=== PATIENT | female | born 1995 | race Asian ===

== ENCOUNTER 2017-04-25 06:44 | Inpatient (IN) | payer MEDICAID ==
[2017-04-25] MEDS ORDERED: NACL 0.9% 1000 ML 1,000 ML ONE ×3 (07:48→12:02)
[2017-04-25] MEDS ORDERED: ZOFRAN IV ONE (07:53)
[2017-04-25] MEDS ORDERED: DILAUDID IV ONE (07:53)
--- NOTE | 2017-04-25 07:55 | Emergency Department Report ---
ED Abdominal Pain HPI - General Chief Complaint: Abdominal Pain Stated Complaint: ABD PAIN Time Seen by Provider: 04/25/17 07:46 Source: patient Mode of arrival: Wheelchair Limitations: No Limitations - History of Present Illness Initial Comments: 21-year-old female presents to the hospital complaining of lower abd pain center onset at 1 AM. Positive associated nausea or vomiting. No abdominal pain is crampy, severe, continuous. Worse with palpation. No alleviating factors. Patient states her menstrual cycle is typically regular. Last cycle was in February she did not have a period in March. She has not taken a recent test. She has a history of 2 previous pregnancies and one miscarriage and one living child. Also previous history of cholecystectomy - Related Data Home Medications Medication Instructions Recorded Confirmed Last Taken No Known Home Medications [No 04/25/17 04/25/17 Unknown Reported Home Medications] Allergies Allergy/AdvReac Type Severity Reaction Status Date / Time No Known Allergies Allergy Unverified 04/25/17 07:33 ED Review of Systems ROS: Stated complaint: ABD PAIN Other details as noted in HPI Comment: All other systems reviewed and negative Other: Constitutional: No fevers chills Eyes: No eye pain visual changes ENT: No ear pain or throat pain Neck: Denies pain Respiratory: Denies cough wheezing shortness of breath Cardiovascular: Denies chest pain, palpitations, syncope GI: As per HPI : Denies dysuria Musculoskeletal: Denies back pain Skin: Denies rash, lesions, erythema Neurologic: Denies headache, numbness, weakness Psychiatric: Denies suicidal ideation, hallucinations ED Past Medical Hx - Past Medical History Previous Medical History?: No - Surgical History Past Surgical History?: Yes Hx Cholecystectomy: Yes - Social History Smoking Status: Never Smoker Substance Use Type: None - Medications Home Medications: Home Medications Medication Instructions Recorded Confirmed Last Taken Type No Known Home Medications [No 04/25/17 04/25/17 Unknown History Reported Home Medications] ED Physical Exam - General Limitations: No Limitations - Other Other exam information: General: Mild distress secondary to pain Head exam: Atraumatic, normocephalic Eyes exam: Normal appearance ENT: Moist mucous membrane, normal oropharynx Neck exam: Normal inspection, full range of motion Respiratory exam: Clear to auscultation bilateral, no wheezes, rales, crackles Cardiovascular: Tachycardic regular rhythm Abdomen: Soft, nondistended, superpubic tenderness. No rebound or guarding Extremity: Full range of motion normal inspection no deformity Back: Normal Inspection, full range of motion, no tenderness Neurologic: Alert, oriented x3, cranial nerves intact, no motor or sensory deficit Psychiatric: normal affect, normal mood Skin: Diaphoretic, pale ED Course Vital Signs 04/25/17 07:33 Pulse Rate 147 H Respiratory 16 Rate Blood Pressure 84/52 O2 Sat by Pulse 99 Oximetry - Reevaluation(s) Reevaluation #1: 04/25/17 08:27 Patient has received Dilaudid 0.5 mg, Zofran, and normal saline bolus 04/25/17 08:32 Patient's heart rate has improved from 150s to 1 teens after receiving 1 L normal saline and 0.5 mg of Dilaudid. Systolic pressure remains 109. Patient reports improvement in pain - Consultations Consultation #1: 04/25/17 07:57 Case discussed with the Dr. Mercado about possible differential of SOCIAL SERVICES SPECIALIST- related emergency. Will be contacted once more results are available 04/25/17 08:18 prelim bedside ultrasound, + a lot of free fluid, 7wks left adnexal ectopic, + heart, official pending, Case d/w Dr Mercado, will activate OR and come in to perform surgery. I canceled Transvag US ED Medical Decision Making - Lab Data Result diagrams: 04/25/17 07:50 04/25/17 07:50 Lab Results 04/25/17 04/25/17 04/25/17 Range/Units 07:47 07:50 07:50 WBC 29.8 H (4.5-11.0) K/mm3 RBC 4.26 (3.65-5.03) M/mm3 Hgb 10.8 (10.1-14.3) gm/dl Hct 33.9 (30.3-42.9) % MCV 80 (79-97) fl MCH 25 L (28-32) pg MCHC 32 (30-34) % RDW 14.3 (13.2-15.2) % Plt Count 444 H (140-440) K/mm3 Add Manual Diff Complete Total Counted 100 Seg Neuts % (Manual) 84.0 H (40.0-70.0) % Band Neutrophils % 3.0 % Lymphocytes % (Manual) 10.0 L (13.4-35.0) % Reactive Lymphs % (Man) 0 % Monocytes % (Manual) 3.0 (0.0-7.3) % Eosinophils % (Manual) 0 (0.0-4.3) % Basophils % (Manual) 0 (0.0-1.8) % Metamyelocytes % 0 % Myelocytes % 0 % Promyelocytes % 0 % Blast Cells % 0 % Nucleated RBC % Not Reportable Seg Neutrophils # Man 25.0 H (1.8-7.7) K/mm3 Band Neutrophils # 0.9 K/mm3 Lymphocytes # (Manual) 3.0 (1.2-5.4) K/mm3 Abs React Lymphs (Man) 0.0 K/mm3 Monocytes # (Manual) 0.9 H (0.0-0.8) K/mm3 Eosinophils # (Manual) 0.0 (0.0-0.4) K/mm3 Basophils # (Manual) 0.0 (0.0-0.1) K/mm3 Metamyelocytes # 0.0 K/mm3 Myelocytes # 0.0 K/mm3 Promyelocytes # 0.0 K/mm3 Blast Cells # 0.0 K/mm3 WBC Morphology Not Reportable Hypersegmented Neuts Not Reportable Hyposegmented Neuts Not Reportable Hypogranular Neuts Not Reportable Smudge Cells Not Reportable Toxic Granulation Not Reportable Toxic Vacuolation Not Reportable Dohle Bodies Not Reportable Pelger-Huet Anomaly Not Reportable Robbie Rods Not Reportable Platelet Estimate Appears normal Clumped Platelets Not Reportable Plt Clumps, EDTA Not Reportable Large Platelets Not Reportable Giant Platelets Not Reportable Platelet Satelliting Not Reportable Plt Morphology Comment Not Reportable RBC Morphology Not Reportable Dimorphic RBCs Not Reportable Polychromasia Rare Hypochromasia Few Poikilocytosis 1+ Anisocytosis 1+ Microcytosis Not Reportable Macrocytosis Not Reportable Spherocytes Not Reportable Pappenheimer Bodies Not Reportable Sickle Cells Not Reportable Target Cells Not Reportable Tear Drop Cells Rare Ovalocytes 1+ Helmet Cells Not Reportable Lund-Becker Bodies Not Reportable [place] Rings Not Reportable Mai Cells Not Reportable Bite Cells Not Reportable Crenated Cell Not Reportable Elliptocytes Not Reportable Acanthocytes (Spur) Not Reportable Rouleaux Not Reportable Hemoglobin C Crystals Not Reportable Schistocytes Not Reportable Malaria parasites Not Reportable Jossue Bodies Not Reportable Hem Pathologist Commnt No PT (12.2-14.9) Sec. INR (0.87-1.13) APTT (24.2-36.6) Sec. Sodium 134 L (137-145) mmol/L Potassium 4.3 (3.6-5.0) mmol/L Chloride 94.7 L (98-107) mmol/L Carbon Dioxide 17 L (22-30) mmol/L Anion Gap 27 mmol/L BUN 9 (7-17) mg/dL Creatinine 1.3 H (0.7-1.2) mg/dL Estimated GFR 51 ml/min BUN/Creatinine Ratio 6.92 % Glucose 313 H (65-100) mg/dL Calcium 8.9 (8.4-10.2) mg/dL Total Bilirubin 0.40 (0.1-1.2) mg/dL AST 23 (5-40) units/L ALT 34 (7-56) units/L Alkaline Phosphatase 56 (35-129) units/L Total Protein 7.0 (6.3-8.2) g/dL Albumin 4.1 (3.9-5) g/dL Albumin/Globulin Ratio 1.4 % Lipase 21 (13-60) units/L HCG, Quant (0-4) mIU/mL Blood Type AB POSITIVE Antibody Screen TNR BAUTISTA Antibody Screen Negative 04/25/17 04/25/17 Range/Units 07:50 07:50 WBC (4.5-11.0) K/mm3 RBC (3.65-5.03) M/mm3 Hgb (10.1-14.3) gm/dl Hct (30.3-42.9) % MCV (79-97) fl MCH (28-32) pg MCHC (30-34) % RDW (13.2-15.2) % Plt Count (140-440) K/mm3 Add Manual Diff Total Counted Seg Neuts % (Manual) (40.0-70.0) % Band Neutrophils % % Lymphocytes % (Manual) (13.4-35.0) % Reactive Lymphs % (Man) % Monocytes % (Manual) (0.0-7.3) % Eosinophils % (Manual) (0.0-4.3) % Basophils % (Manual) (0.0-1.8) % Metamyelocytes % % Myelocytes % % Promyelocytes % % Blast Cells % % Nucleated RBC % Seg Neutrophils # Man (1.8-7.7) K/mm3 Band Neutrophils # K/mm3 Lymphocytes # (Manual) (1.2-5.4) K/mm3 Abs React Lymphs (Man) K/mm3 Monocytes # (Manual) (0.0-0.8) K/mm3 Eosinophils # (Manual) (0.0-0.4) K/mm3 Basophils # (Manual) (0.0-0.1) K/mm3 Metamyelocytes # K/mm3 Myelocytes # K/mm3 Promyelocytes # K/mm3 Blast Cells # K/mm3 WBC Morphology Hypersegmented Neuts Hyposegmented Neuts Hypogranular Neuts Smudge Cells Toxic Granulation Toxic Vacuolation Dohle Bodies Pelger-Huet Anomaly Robbie Rods Platelet Estimate Clumped Platelets Plt Clumps, EDTA Large Platelets Giant Platelets Platelet Satelliting Plt Morphology Comment RBC Morphology Dimorphic RBCs Polychromasia Hypochromasia Poikilocytosis Anisocytosis Microcytosis Macrocytosis Spherocytes Pappenheimer Bodies Sickle Cells Target Cells Tear Drop Cells Ovalocytes Helmet Cells Lund-Becker Bodies [place] Rings Mai Cells Bite Cells Crenated Cell Elliptocytes Acanthocytes (Spur) Rouleaux Hemoglobin C Crystals Schistocytes Malaria parasites Jossue Bodies Hem Pathologist Commnt PT 13.6 (12.2-14.9) Sec. INR 1.05 (0.87-1.13) APTT 25.0 (24.2-36.6) Sec. Sodium (137-145) mmol/L Potassium (3.6-5.0) mmol/L Chloride (98-107) mmol/L Carbon Dioxide (22-30) mmol/L Anion Gap mmol/L BUN (7-17) mg/dL Creatinine (0.7-1.2) mg/dL Estimated GFR ml/min BUN/Creatinine Ratio % Glucose (65-100) mg/dL Calcium (8.4-10.2) mg/dL Total Bilirubin (0.1-1.2) mg/dL AST (5-40) units/L ALT (7-56) units/L Alkaline Phosphatase (35-129) units/L Total Protein (6.3-8.2) g/dL Albumin (3.9-5) g/dL Albumin/Globulin Ratio % Lipase (13-60) units/L HCG, Quant 01290 H (0-4) mIU/mL Blood Type Antibody Screen BAUTISTA Antibody Screen - Radiology Data Radiology results: report reviewed (abdominal ultrasound: Received call from radiologist at 9:09 AM confirming left adnexal viable ectopic with positive free fluid/rupture) - Medical Decision Making Patient requires emergent surgery for ruptured ectopic . Dr. Mercado will arrange for surgery YOSSI. Patient required admission to the hospital. Patient also had significant leukocytosis and hyperglycemia which may be due to stress reaction. However, diabetes/sepsis is also in the differential - Differential Diagnosis ruptured cyst, torsion, ectopic, miscarriage, appendicitis, perforated visc Critical Care Time: Yes Critical care time in (mins) excluding proc time.: 35 Critical care attestation.: If time is entered above; I have spent that time in minutes in the direct care of this critically ill patient, excluding procedure time. Critical Care Time: Patient received 2 peripheral IVs upon arrival with initiation of normal saline bolus. Patient requires stat bedside ultrasound and repeat assessment for response to treatment. Consultation to chief human resources officer ED Disposition Clinical Impression: Ruptured ectopic , Hyperglycemia, Leukocytosis Disposition: DISCHARGED TO HOME OR SELFCARE Is pt being admited?: Yes Condition: Good Referrals: PRIMARY CARE, [Primary Care Provider] - 3-5 Days Time of Disposition: 08:27 (Dr eMrcado/chief human resources officer)
[2017-04-25 08:08] LABS: Hematocrit 33.9 % (30.3-42.9); Hemoglobin 10.8 gm/dl (10.1-14.3); Mean Corpuscular HGB Conc 32 % (30-34); Mean Corpuscular Volume 80 fl (79-97); Platelet Count 444 K/mm3 (140-440); Red Blood Count 4.26 M/mm3 (3.65-5.03); Red Cell Distribution Width 14.3 % (13.2-15.2)
[2017-04-25 08:11] LABS: Mean Corpuscular Hemoglobin 25 pg (28-32); White Blood Count 29.8 K/mm3 (4.5-11.0)
[2017-04-25 08:22] LABS: Albumin 4.1 g/dL (3.9-5); Albumin/Globulin Ratio 1.4 %; BUN/Creatinine Ratio 6.92; Bilirubin,Total 0.4 mg/dL (0.1-1.2); Calcium 8.9 mg/dL (8.4-10.2); Chloride 94.7 mmol/L (98-107); Potassium 4.3 mmol/L (3.6-5.0)
[2017-04-25 08:24] LABS: INR 1.05 (0.87-1.13)
[2017-04-25] MEDS ORDERED: NACL 0.9% 1000 ML 1,000 ML IV ONE (08:31)
[2017-04-25 09:01] LABS: Anisocytosis 1+; Basophils % (Manual) 0 % (0.0-1.8); Blastocytes % (Manual) 0 %; Diff Status Complete; Eosinophils % (Manual) 0 % (0.0-4.3); Hypochromasia Few; Ovalocytes 1+; Poikilocytosis 1+; Polychromasia Rare; Tear Drop Cells Rare
--- NOTE | 2017-04-25 09:09 | Ultrasound Report ---
FINAL REPORT PROCEDURE: US OB \T\lt; = 14 WEEKS FETUS TECHNIQUE: Real-time transabdominal sonography of the uterus, placenta, amniotic fluid, adnexa, and fetus was performed with image documentation. Measurements were obtained to determine age/size. M-mode Doppler was used to document heartbeat. CPT 44519 Transvaginal ultrasound was not performed per Dr. Schofield, according to ocular care technologist notes HISTORY: lower abd pain, tachycardia COMPARISON: No prior studies are available for comparison. FINDINGS: Uterus 8.1 centimeter Endometrial thickness 3 millimeters No IUP is seen Cervix: Normal. Right ovary not visualized Left ovary not visualized, however there is a left adnexal mass measuring 4.1 x 3.3 centimeters containing a live ectopic measuring 9 millimeters consistent with 7 week 0 day age. Ectopic Embryonic Cardiac Activity: 131 beats per minute Free fluid in the pelvis and right and left upper quadrants. The free fluid could reflect rupture or related bleed to the ectopic IMPRESSION: Single live ectopic left adnexa. Large amount of free fluid in the pelvis and upper quadrants may reflect rupture or bleed related to the ectopic Obstetric surgical consultation advised. Report called to Dr. Schofield at 9 a.m. 04/25/2017
--- NOTE | 2017-04-25 09:19 | Anesthesia Consultation ---
Anesthesia Consult and Med Hx Date of service: 04/25/17 - Airway Anesthetic Teeth Evaluation: Good (upper and lower braces) ROM Head & Neck: Adequate Mental/Hyoid Distance: Adequate Mallampati Class: Class II Intubation Access Assessment: Probably Good - Pre-Operative Health Status ASA Pre-Surgery Classification: ASA2, Emergency Proposed Anesthetic Plan: General - Additional Comments Anesthesia Medical History Comments: ectopic
--- NOTE | 2017-04-25 09:20 | Anesthesia Day of Surgery ---
Anesthesia Day of Surgery - Day of Surgery Patient Examined: Yes Patient H&P Reviewed: Yes Patient is NPO: Yes (had some water @3AM )
[2017-04-25] MEDS ORDERED: ACD-A 500 ML IV ONE (09:35)
--- NOTE | 2017-04-25 09:54 | Short Stay Summary ---
Short Stay Documentation Date of service: 04/25/17 Narrative H&P: 21y/o @ 7 weeks leandro presents to the ED with pelvic pain and lightheaded. Pelvic ultrasound demonstrates a left ectopic consistent with 7 weeks and cardiac activity. Free fluid was also seen in the abdomen. Upon presentation, the patient is tachycardic and in acute distress. - History Principal diagnosis: Left ectopic Past Medical History: No medical history Past Surgical History: cholecystectomy Social history: single - Allergies and Medications Current Medications: Allergies No Known Allergies Allergy (Unverified 04/25/17 07:33) - Physical exam General appearance: severe distress Integumentary: no rash HEENT: Atraumatic Lungs: Clear to auscultation Breasts: deferred Heart: Other (tachycardia) Gastrointestinal: tenderness Female Genitourinary: deferred - Brief post op/procedure progress note Date of procedure: 04/25/17 Pre-op diagnosis: Left ectopic Post-op diagnosis: same Procedure: Laparoscopy left salpingectomy Anesthesia: GETA Surgeon: ASHU SUBRAMANIAN Estimated blood loss: other (1000ml) Pathology: list (left ectopic ) - Hospital course Hospital course: Patient admitted from the ED for findings of a left ectopic and significant hemoperitoneum. Patient underwent a laparoscopic left salpingectomy. see op note. She was observed overnight. Discharged home pod 1 - Disposition Condition at discharge: Good Disposition: DISCHARGED TO HOME OR SELFCARE - Discharge Diagnoses (1) Ruptured ectopic Status: Acute Short Stay Discharge Plan Activity: other (pelvic rest for 2 weeks) Diet: regular Additional Instructions: Followup in [address] Olson at [facility] [address] [phone] Prescriptions: Docusate Sodium [Colace] 100 mg PO BID PRN #60 capsule PRN Reason: Constipation Ferrous Sulfate [Feosol 325 MG tab] 325 mg PO BID #60 tablet Ibuprofen [Motrin] 800 mg PO Q8HR PRN #60 tablet PRN Reason: Pain Oxycodone HCl/Acetaminophen [Percocet 10/325 mg] 1 each PO Q6HR PRN #45 tablet PRN Reason: Pain
[2017-04-25] MEDS ORDERED: DILAUDID ONE (09:57)
[2017-04-25] MEDS ORDERED: DIPRIVAN 10 MG/ML IV ONE (09:57)
[2017-04-25] MEDS ORDERED: XYLOCAINE MPF 2% ONE (09:58)
[2017-04-25] MEDS ORDERED: QUELICIN ONE (09:58)
[2017-04-25] MEDS ORDERED: ZEMURON IV ONE (09:58)
[2017-04-25] MEDS ORDERED: NEO SYNEPHRINE/NS Syringe(OR USE) IV ONE (10:30)
[2017-04-25] MEDS ORDERED: ZOFRAN ONE (10:34)
[2017-04-25] MEDS ORDERED: DECADRON ONE ×2 (10:34→11:46)
[2017-04-25] MEDS ORDERED: DILAUDID IV PRN (10:52)
[2017-04-25] MEDS ORDERED: LACTATED RINGERS 1,000 ML ONE (10:54)
[2017-04-25] MEDS ORDERED: ZOFRAN IV PRN ×2 (11:00→12:13)
[2017-04-25] MEDS ORDERED: NORCO 5/325 PO PRN (11:00)
[2017-04-25] MEDS ORDERED: MARCAINE 0.5% 30 ML INFILTRATI ONE (11:02)
[2017-04-25] MEDS ORDERED: MARCAINE 0.5% INFILTRATI ONE (11:04)
[2017-04-25] MEDS ORDERED: NEOSTIGMINE ONE (11:47)
[2017-04-25] MEDS ORDERED: ROBINUL ONE (11:47)
--- NOTE | 2017-04-25 12:02 | Operative Report ---
Operative Report Operative Report: Date of surgery:04/25/2017 Preoperative diagnosis: Left ectopic ; Hemoperitoneum Postoperative diagnosis: Same as above Procedure: Laparoscopic left salpingectomy; evacuation of hemoperitoneum Surgeon: Philly Petit M.D. Anesthesia: General endotracheal anesthesia Estimated blood loss: 1000 mL Findings: Ruptured left ectopic ; hemoperitoneum Pathology: Left ectopic Indication: 21-year-old 011 at 7 weeks estimated gestational age with findings of a ruptured left ectopic . The patient was diaphoretic at the presentation in the emergency room with findings of a large hemoperitoneum. Procedure: The patient was taken to the operating room and given general endotracheal anesthesia without complication. The patient is prepped and draped in a normal sterile fashion. A bivalve speculum was placed in the patient's vagina and a single-tooth tenaculum was placed on the anterior lip of the cervix .A uterine acorn manipulato rwas placed, and the bivalve speculum was then removed. Attention was then turned to the patient's abdomen where a 5 mm infraumbilical skin incision was then made. A Veress needle was placed and peritoneal entry was verified water-filled syringe. Insufflation of the peritoneal cavity was performed with CO2 gas. A 5 mm trocar was placed and the laparoscope was then inserted. The patient was then placed in Trendelenburg. A 12 mm left lateral skin incision was then made. Under direct visualization a 12 mm trocar was then placed. General survey of the patient's abdomen revealed a large hemoperitoneum, also with findings of a ruptured left ectopic . The left ovary was normal in appearance and the right tube and ovary were also normal. An additional 5 mm suprapubic incision was made and a 5 mm trocar was placed under direct visualization. Evacuation of the hemoperitoneum was performed. The left tube was grasped and a LigaSure device was used to coagulate and transect the left fallopian tube. The was noted to be in the ampullary portion of the tube. There was a complete rupture of the left ampullary tube. The patient was placed in reverse Trendelenburg to performed additional removal of the hemoperitoneum. Once the site was deemed hemostatic the 12 mm trocar was then removed. The fascial incision was then closed with a Jass Hopper device using 0 Vicryl. The suprapubic trocar was then also removed. The pneumoperitoneum was then released.The 5 mm trocar laparoscope was then removed. The skin incisions were then closed with 4-0 Monocryl. The incisions were injected with quarter percent Marcaine. Dressings were applied to the incision. The vaginal instruments were then removed atraumatically. Then successfully extubated and taken to the recovery room. All sponge laps and needle counts were correct 2.
[2017-04-25] MEDS ORDERED: PERCOCET 5/325 PO PRN (12:13)
[2017-04-25] MEDS ORDERED: MOTRIN PO PRN (12:13)
[2017-04-25] MEDS ORDERED: TYLENOL PO PRN (12:13)
[2017-04-25] MEDS ORDERED: D5LR 1,000 ML IV SCH (13:00)
[2017-04-25] MEDS: TORADOL IV SCH ×2 (14:00→21:52)
[2017-04-25 20:07] LABS: Bilirubin,Urine NEG (Negative); Blood,Urine LG (Negative); Ketones,Urine TR mg/dL (Negative); Leukocyte Esterase,Urine NEG (Negative); Mucus,Urine 1+ /HPF; Nitrite,Urine NEG (Negative); RBC,Urine > 182.0 /HPF (0.0-6.0); Urobilinogen,Urine < 2.0 mg/dL (<2.0)
--- NOTE | 2017-04-25 20:22 | Post Anesthesia Evaluation ---
- Post Anesthesia Evaluation Patient Participated: Yes Airway Patent: Yes Stable Respiratory Function: Yes Temp > 96.8F: Yes Pain Manageable: Yes Adequeate Hydration: Yes Anesthesia Complications: No Block Receding Appropriately: Not Applicable
--- NOTE | 2017-04-25 20:24 | Progress Note ---
Subjective Date of service: 04/25/17 Principal diagnosis: Left ectopic Interval history: Patient seen and examined. She has no right shoulder pain, tenderness or loss of mobility. Objective - Constitutional Vitals: Vital Signs - 12hr 04/25/17 04/25/17 04/25/17 12:18 12:30 12:45 Temperature Pulse Rate 80 82 83 Pulse Rate [ Apical] Respiratory 18 19 22 Rate Blood Pressure 115/46 117/53 113/70 Blood Pressure [Right Arm] O2 Sat by Pulse 97 99 100 Oximetry 04/25/17 04/25/17 04/25/17 13:00 13:15 13:48 Temperature 97.7 F 97.7 F Pulse Rate 88 Pulse Rate [ 87 124 H Apical] Respiratory 18 18 18 Rate Blood Pressure 143/77 Blood Pressure 143/77 [Right Arm] O2 Sat by Pulse 100 98 Oximetry 04/25/17 16:16 Temperature 98.6 F Pulse Rate Pulse Rate [ 80 Apical] Respiratory 20 Rate Blood Pressure Blood Pressure 128/64 [Right Arm] O2 Sat by Pulse Oximetry - Labs CBC & Chem 7: 04/25/17 07:50 04/25/17 07:50 Labs: Abnormal lab results 04/25/17 Range/Units 19:45 Urine HCG, Qual Positive A (Negative)
[2017-04-26] MEDS: TORADOL IV SCH (01:00)
[2017-04-26 06:27] LABS: Hematocrit 26.9 % (30.3-42.9); Hemoglobin 8.7 gm/dl (10.1-14.3)
[2017-04-26] MEDS ORDERED: LACTATED RINGERS 1,000 ML IV ONE (08:30)
--- NOTE | 2017-04-26 08:52 | Progress Note ---
Assessment and Plan - Patient Problems (1) Ruptured ectopic Current Visit: Yes Status: Acute Plan to address problem: clinically stable discharge home today Subjective - Subjective Date of service: 04/26/17 Principal diagnosis: Left ectopic Interval history: Patient states feeling much better. Slight tachycardia but asymptomatic. Patient is ambulating in room. Better control of pain. Will give a fluid bolus. Patient reports: appetite normal, voiding normally, pain well controlled Objective - Vital Signs Latest vital signs: Vital Signs Temp Pulse Pulse Pulse Resp BP BP 04/26/17 08:16 125 H 04/26/17 08:03 98.6 F 106 H 16 114/55 04/26/17 04:55 98.1 F 107 H 20 119/62 04/26/17 00:20 97.9 F 120 H 20 128/83 04/25/17 21:52 18 04/25/17 20:35 99.0 F 89 20 132/74 04/25/17 16:16 98.6 F 80 20 128/64 04/25/17 13:48 124 H 18 04/25/17 13:15 97.7 F 88 18 143/77 04/25/17 13:00 97.7 F 87 18 143/77 04/25/17 12:45 83 22 113/70 04/25/17 12:30 82 19 117/53 04/25/17 12:18 80 18 115/46 Pulse Ox 04/26/17 08:16 04/26/17 08:03 99 04/26/17 04:55 04/26/17 00:20 04/25/17 21:52 04/25/17 20:35 04/25/17 16:16 04/25/17 13:48 98 04/25/17 13:15 100 04/25/17 13:00 04/25/17 12:45 100 04/25/17 12:30 99 04/25/17 12:18 97 Intake and Output 04/25/17 04/26/17 04/26/17 22:59 06:59 14:59 Intake Total 1140 240 Output Total 750 500 Balance 390 -260 Intake: IV 300 D5lr 1,000 ml @ 125 mls/ 300 hr IV DIRECT ROSA Rx#: [id number] Oral 720 240 Intake, Free Water 120 Output: Urine 750 500 Void 750 500 Other: Total, Intake Amount 240 120 Total, Output Amount 200 200 Voiding Method Toilet - Exam Abdomen: Present: normal appearance - Labs Labs: Abnormal lab results 04/25/17 04/26/17 Range/Units 19:45 05:55 Hgb 8.7 L (10.1-14.3) gm/dl Hct 26.9 L D (30.3-42.9) % Urine HCG, Qual Positive A (Negative)
[2017-04-26] MEDS ORDERED: NACL 0.9% 500 ML 500 ML IV ONE (13:22)
[2017-04-26 17:34] VITALS: BP 110/59
--- NOTE | 2017-04-27 09:15 | Admit Criteria Form ---
Admission Criteria Documentation: OBSTETRIC AND GYNECOLOGIC DISEASE GRG Clinical Indications for Admission to Inpatient Care (Place 'X' for any and all applicable criteria): Hospital admission is needed for appropriate care of the patient because of 1 or more of the following (1)(2)(3): [ ]I. Hemodynamic instability, as indicated by 1 or more of the following (1)( 2)(3)(4)(5): [ ]a) Vital signs or other findings not as expected for chronic patient condition or baseline [ ]b) Instability indicated by 1 or more of the following: [ ]i) Hypotension [ ]ii) Symptomatic tachycardia unresponsive to treatment (eg, analgesia, fluids, sedation as indicated) [ ]iii) Inadequate perfusion indicated by 1 or more of the following: [ ]A. Lactic acidosis (greater than 2 mmol/ L) [ ]B. New abnormal capillary refill ( greater than 3 seconds) [ ]C. Reduced urine output [ ]D. New altered mental status [ ]iv) Orthostatic vital sign changes unresponsive to treatment (eg, fluids) [ ]v) Multiple IV fluid boluses required to maintain adequate blood pressure or perfusion [ ]vi) IV inotropic or vasopressor medication required to maintain adequate blood pressure or perfusion [ ]II. Obstetric infection requiring hospitalization indicated by 1 or more of the following(13)(14): [ ]a) Chorioamnionitis [ ]b) Endometritis (except mild endometritis) [ ]c) Pelvic abscess [ ]d) Peritonitis [ ]e) Septic pelvic thrombophlebitis [ ]III. Amniotic fluid or pulmonary embolism(4)(5)(6) [X]IV. Suspected peritonitis or ectopic requiring monitoring beyond scope of 24 hours or observation care(7)(8) [ ]V. compromise requiring hospitalization indicated by ALL of the following(9)(10): [ ]a) compromise indicated by 1 or more of the following(11): [ ]i) Abnormal heart rate monitoring [ ]ii) Abnormal contraction stress test [ ]iii) Abnormal biophysical profile [ ]iv) Abnormal Doppler flow in vessels (ie, Doppler velocimetry) (12) [ ]b) Persistence of compromise indicators during evaluation and observation monitoring [ ]. Ovarian hyperstimulation syndrome requiring hospitalization[A] indicated by ALL of the following(15): [ ]a) Recent ovarian stimulation with gonadotropins, or evidence on ultrasound of spontaneous emergence of large number of ovarian follicles [ ]b) Evidence of severe ovarian hyperstimulation syndrome indicated by 1 or more of the following: [ ]i) Abdominal pain unresponsive to oral therapy [ ]ii) Acute respiratory distress syndrome [ ]iii) Electrolyte imbalance ( eg, hyponatremia, hyperkalemia) [ ]iv) Elevated liver enzymes [ ]v) Evidence of thromboembolism [ ]vi) Hemoconcentration (hematocrit greater than 45 % (0.45)) [ ]vii) Inability to maintain oral intake adequate to prevent hemoconcentration [ ]viii) Marked hypotension from baseline (eg, SBP 20 mmHg below patients usual pressure) [ ]ix) Oliguria or anuria [ ]x) Ovarian torsion [ ]xi) Pleural or pericardial effusion on x-ray or echocardiogram [ ]xii) Rapid increase in serum creatinine to greater than 1.2 mg/dL (106 micromoles/L) or creatinine clearance less than 50 mL/min/1.73m2 (0.84 mL/ sec/1.73m2) [ ]xiii) Ruptured ovarian cyst with hemorrhage [ ]xiv) Severe abdominal pain or peritoneal signs [ ]xv) Tense ascites that cannot be managed with paracentesis in outpatient setting [ ]VII.Pelvic infection requiring hospitalization indicated by 1 or more of the following (16): [ ]a) Outpatient treatment has failed or is not appropriate (eg, inpatient monitoring required) [ ]b) Pelvic abscess [ ]c) Surgical emergency cannot be excluded (eg, rigid abdomen) [ ]d) Vomiting precluding outpatient and observation care management VIII. loss complications requiring inpatient medical treatment indicated by 1 or more of the following (4)(7)(9): [ ]a) Fever [ ]b) Peritonitis [ ]c) Sepsis [ ]d) Severe abdominal pain [ ]IX. or patient requiring monitoring for severe heart failure, pulmonary disease, or other comorbid condition (eg, peripartum cardiomyopathy) (4)(17) [ ]X. patient with rupture of membranes requiring hospitalization indicated by ANY ONE of the following: [ ]a) Chorioamnionitis, cloudy amniotic fluid, or other evidence of infection [ ]b) compromise or other need for monitoring (11) [ ]c) Gestation longer than 23 weeks and ANY ONE of the following: [ ]i) Abnormal (noncephalic) presentation [ ]ii) Inadequate home environment (eg, home too far from hospital, unable to rapidly return to hospital) [ ]d) Temperature greater than 100.4 degrees F (38 degrees C)( oral) [ ]e) Threatened labor requiring monitoring beyond scope (eg, over 24 hours) of observation Care [ ] XI. complications, including severe lacerations, infections, or retained placenta (19) [ ] XII.Uterine bleeding with high-risk features indicated by ANY ONE of the following (4): [ ]a) Active major hemorrhage (eg, hemorrhage) [ ]b) Coagulopathy with active bleeding [ ]c) Gestational trophoblastic disease (eg, molar ) (20 ) [ ]d) (longer than 23 weeks) and ANY ONE of the following: [ ]i) Pain [ ]ii) Placental abruption, known or suspected [ ]iii) Placenta accrete, known or suspected(21) [ ]iv) Placenta previa, known or suspected [ ]v) Vasa previa [ ]e) Severe anemia [ ]XIII. Obstetric or Gynecologic Disease, condition or symptom for which ANY ONE of the following: [ ]a) Emergency and observation care have failed or are not considered appropriate ( Also use General Criteria: Observation Care Criteria as appropriate) [ ]b) Presence of a General Admission Criteria or Pediatric General Admission Criteria The original [facility] content created by [facility] [employer] has been revised. The portions of the content which have been revised are identified through the use of italic text or in bold, and [facility] has neither reviewed nor approved the modified material.All other unmodified content is copyright [facility]. Please see references footnoted in the original [facility] edition 2016 Admission Criteria Met: Yes
== END 2017-04-26 18:22 | disposition home or self-care (01) | DRG 777 ==
LOC: ED 06:44 → OR 11:51 → OB 12:13
PROVIDERS: ADMIT Obstetrics & Gynecology; ATTEND Obstetrics & Gynecology
PROC: 0UB64ZZ Excision of Left Fallopian Tube, Percutaneous Endoscopic Approach (ICD-10-PCS; principal; 2017-04-25)
PROC: 10T24ZZ Resection of Products of Conception, Ectopic, Percutaneous Endoscopic Approach (ICD-10-PCS; 2017-04-25)
PROC: 0WCG4ZZ Extirpation of Matter from Peritoneal Cavity, Percutaneous Endoscopic Approach (ICD-10-PCS; 2017-04-25)
PROC: 30233N1 Transfusion of Nonautologous Red Blood Cells into Peripheral Vein, Percutaneous Approach (ICD-10-PCS; 2017-04-26)
DX: O00.90 Unspecified ectopic pregnancy without intrauterine pregnancy (principal); Z90.49 Acquired absence of other specified parts of digestive tract; D72.829 Elevated white blood cell count, unspecified; R73.9 Hyperglycemia, unspecified; K66.1 Hemoperitoneum; R00.0 Tachycardia, unspecified; O26.891 Other specified pregnancy related conditions, first trimester; Z3A.01 Less than 8 weeks gestation of pregnancy; O99.281 Endocrine, nutritional and metabolic diseases complicating pregnancy, first trimester
CPT/HCPCS: 36415; 76801; 80053; 81001; 81025; 83690; 84702; 85007; 85014; 85018; 85025; 85610; 85730; 86850; 86900; 86901; 86920; 88305; 93005; 93010; 96361; 96374; 96375; 99291; J0330; J1100; J1170; J1885; J2370; J2405; J2704; J2710; J7030; J7040; J7120; J7121; P9016